=== PATIENT | female | born 1990 | race Caucasian/White ===

== ENCOUNTER 2018-09-13 06:52 | Inpatient (IN) | payer OTHER ==
[~2018-09-13] VITALS: Ht 154.9 cm; Wt 93.9 kg
[2018-09-13 06:58] VITALS: Ht 154.9 cm; Wt 93.9 kg
[2018-09-13 07:52] LABS: PLATELET COUNT 236 x10^3mcL (130-400); RED CELL DISTRIBUTION WIDTH 13.7 % (11.5-14.5)
[2018-09-13 07:57] LABS: CALCIUM 9.5 mg/dL (8.5-10.1); CARBON DIOXIDE 22.1 mmol/L (21-32); CHLORIDE SERUM 104 mmol/L (98-107); CREATININE SERUM 0.9 mg/dL (0.6-1.0); GFR1 > 60 mL/min; GLUCOSE SERUM 150 mg/dL (74-106); SODIUM SERUM 138 mmol/L (136-145)
[2018-09-13 07:59] LABS: ALBUMIN 3.8 g/dL (3.4-5.0); ALKALINE PHOSPHATASE 138 U/L (46-116); ALT/SGPT 13 U/L (14-59); AST/SGOT 6 U/L (15-37); TOTAL PROTEIN, SERUM 8.6 g/dL (6.4-8.2)
[2018-09-13 08:00] LABS: microscopic required? YES; urine erythrocyte 1+ (NEGATIVE)
[2018-09-13 09:23] LABS: BAND NEUTROPHIL 4 % (0-10); BASOPHIL 0 % (0-2); MONOCYTE 5 % (0-7); SEGMENTED NEUTROPHILS 81 % (37-75)
[2018-09-13 09:24] LABS: PLATELET MORPHOLOGY PLATELETS NORMAL; rbc morphology (normal/abnorm) NORMAL (NORMAL)
[2018-09-13 13:15] VITALS: BP 121/62
[2018-09-13 16:53] VITALS: BP 99/55
[2018-09-13 20:59] VITALS: BP 94/52
[2018-09-14 05:39] VITALS: BP 94/51
[2018-09-14 08:14] LABS: CALCIUM 8.5 mg/dL (8.5-10.1); CARBON DIOXIDE 29.1 mmol/L (21-32); CHLORIDE SERUM 103 mmol/L (98-107); CREATININE SERUM 0.9 mg/dL (0.6-1.0); GFR1 > 60 mL/min; GLUCOSE SERUM 143 mg/dL (74-106); POTASSIUM SERUM 3.4 mmol/L (3.5-5.1); SODIUM SERUM 138 mmol/L (136-145)
[2018-09-14 08:40] LABS: BASOPHIL % 0.1 % (0-2); PLATELET COUNT 214 x10^3mcL (130-400); RED CELL DISTRIBUTION WIDTH 13.7 % (11.5-14.5)
[2018-09-14 08:45] VITALS: BP 86/55
[2018-09-14 16:36] VITALS: BP 94/54
[2018-09-14 21:07] VITALS: BP 103/59
[2018-09-15 05:35] VITALS: BP 93/53
[2018-09-15 06:31] LABS: BASOPHIL % 0.3 % (0-2); PLATELET COUNT 205 x10^3mcL (130-400); RED CELL DISTRIBUTION WIDTH 13.6 % (11.5-14.5)
[2018-09-15 06:51] LABS: CALCIUM 8.4 mg/dL (8.5-10.1); CARBON DIOXIDE 25.9 mmol/L (21-32); CHLORIDE SERUM 103 mmol/L (98-107); CREATININE SERUM 0.8 mg/dL (0.6-1.0); GFR1 > 60 mL/min; GLUCOSE SERUM 129 mg/dL (74-106); POTASSIUM SERUM 3.6 mmol/L (3.5-5.1); SODIUM SERUM 139 mmol/L (136-145)
[2018-09-15 08:23] VITALS: BP 103/62
[2018-09-15] MEDS ORDERED: CIPRO500 MG PO (11:29)
[2018-09-15 11:53] VITALS: BP 100/68
[2018-09-15 13:41] VITALS: BP 100/68
[2018-09-15 15:37] VITALS: BP 108/67
== END 2018-09-15 16:50 | disposition home or self-care (01) | DRG 340 ==
LOC: ED 06:52 → MU 09:56
PROVIDERS: Emergency Medicine; Family Medicine; Surgery; ADMIT Internal Medicine
PROC: 0DTJ4ZZ Resection of Appendix, Percutaneous Endoscopic Approach (ICD-10-PCS; principal; 2018-09-13 10:30)
DX: K35.32 Acute appendicitis with perforation, localized peritonitis, and gangrene, without abscess (principal); Z90.89 Acquired absence of other organs
CPT/HCPCS: 94150; J0694; J1170; J1885; J2175; J2250; J2270; J2405; J2543; J3010; J3490; J7030

== ENCOUNTER 2018-12-30 19:49 | Emergency (ER) | payer OTHER ==
[~2018-12-30] VITALS: Ht 154.9 cm; Wt 90.7 kg
[~2018-12-30 19:49] MED LIST: CIPRO500 MG PO
[2018-12-30 20:45] LABS: BASOPHIL % 0.1 % (0-2); PLATELET COUNT 216 x10^3mcL (130-400); RED CELL DISTRIBUTION WIDTH 13.6 % (11.5-14.5)
[2018-12-30 20:50] LABS: CALCIUM 8.2 mg/dL (8.5-10.1); CARBON DIOXIDE 25.9 mmol/L (21-32); CHLORIDE SERUM 103 mmol/L (98-107); CREATININE SERUM 0.9 mg/dL (0.6-1.0); GFR1 > 60 mL/min; GLUCOSE SERUM 96 mg/dL (74-106); POTASSIUM SERUM 3.7 mmol/L (3.5-5.1); SODIUM SERUM 140 mmol/L (136-145)
[2018-12-30 20:55] LABS: ALBUMIN 3.6 g/dL (3.4-5.0); ALKALINE PHOSPHATASE 125 U/L (46-116); ALT/SGPT 14 U/L (14-59); AMYLASE 54 U/L (25-115); AST/SGOT 10 U/L (15-37); BILIRUBIN TOTAL 0.8 mg/dL (0.20-1.00); LIPASE 171 IU/L (73-393); TOTAL PROTEIN, SERUM 7.3 g/dL (6.4-8.2)
[2018-12-30 22:12] VITALS: BP 110/73
== END 2018-12-30 22:12 | disposition home or self-care (01) ==
LOC: ED 19:49
PROVIDERS: Emergency Medicine
DX: R10.13 Epigastric pain (principal); R11.2 Nausea with vomiting, unspecified; R63.0 Anorexia
CPT/HCPCS: J2405; J7030